=== PATIENT | male | born 1980 | race Two or more races ===

== ENCOUNTER 2018-01-02 21:35 | Emergency (ER) | payer OTHER ==
[~2018-01-02] VITALS: Ht 180.3 cm; Wt 81.6 kg
--- NOTE | 2018-01-02 22:00 | NUR ---
MD AT BEDSIDE FOR EVALUATION
[2018-01-02] MEDS ORDERED: ACETAMINOPHEN 325 MG TABLET ONE (22:11)
--- NOTE | 2018-01-02 22:12 | NUR ---
PT BROUGHT BY RADIOLOGY FOR CT
[2018-01-02] MEDS ORDERED: ACETAMINOPHEN 325 MG TABLET PO ONE (22:30)
--- NOTE | 2018-01-02 22:39 | NUR ---
PT DISCHARGED. MEDICALLY CLEARED FOR BOOKING.
[2018-01-02 22:43] VITALS: BP 122/81
== END 2018-01-02 22:43 ==
LOC: ER 21:40
DX: S00.83XA Contusion of other part of head, initial encounter (principal); W18.39XA Other fall on same level, initial encounter; Y93.89 Activity, other specified; Y92.89 Other specified places as the place of occurrence of the external cause; Y99.8 Other external cause status
CPT/HCPCS: 70450; 99284; A4606; Z7610